=== PATIENT | male | born 1965 | race Caucasian/White ===

== ENCOUNTER 2023-01-31 16:40 | Emergency (ER) | payer SELFPAY ==
[2023-01-31] MEDS ORDERED: Lactated Ringers 1,000 ML IV STA (16:49)
[2023-01-31] MEDS ORDERED: Sodium Chloride 0.9% 1,000 ML IV ONE ×2 (16:49→18:35)
[2023-01-31 16:58] LABS: BASE EXCESS ARTERIAL -14.1 (-2.0-3.0); BICARBONATE,ARTERIAL 10 mEq/L (22-26); PCO2 ARTERIAL 20 mmHG (35-45); PO2 ARTERIAL 269 mmHG (80-105)
[2023-01-31] MEDS ORDERED: Calcium Chloride 10% 1 GM/10 ML Syringe ONE (17:02)
[2023-01-31] MEDS ORDERED: Sodium Bicarbonate 8.4% 50 MEQ/50 ML Syringe ONE (17:02)
[2023-01-31 17:03] LABS: BASOPHILS PERCENT AUTO 0.1 % (0.0-1.5); EOSINOPHILS PERCENT AUTO 0.1 % (0.0-7.0); HEMOGLOBIN 8.8 g/dL (13.0-17.0); LYMPHOCYTES ABSOLUTE AUTO 1.8 K/uL (0.6-2.4); LYMPHOCYTES PERCENT AUTO 6.3 % (16.0-40.0); MEAN CORPUSCULAR HEMOGLOBIN 31.7 pg (27.0-32.0); MEAN CORPUSCULAR HGB CONC 35.2 g/dL (31.0-37.0); MEAN CORPUSCULAR VOLUME 89.9 fL (80.0-98.0); MONOCYTES ABSOLUTE AUTO 0.5 K/uL (0.0-0.8); MONOCYTES PERCENT AUTO 1.9 % (0.0-15.0); NEUTROPHILS ABSOLUTE AUTO 25.7 K/uL (1.4-5.7); NEUTROPHILS PERCENT AUTO 91.6 % (48.0-80.0); NRBC ABSOLUTE 0 K/uL; NRBC PERCENT 0.1 /100WBC; PLATELET COUNT,PLT 597 K/uL (150-400); RED BLOOD CELL COUNT 2.78 M/uL (4.50-5.90); WHITE BLOOD CELL COUNT,WBC 28.08 K/uL (4.0-11.0)
[2023-01-31] MEDS ORDERED: Calcium Gluconate 10% 1 GM/10 ML SDV ONE (17:04)
[2023-01-31] MEDS ORDERED: Cefepime 2 GM in Sodium Chloride 0.9% 50 ML IV ONE (17:07)
[2023-01-31 18:12] LABS: A/G RATIO 0.4 (0.9-1.6); ACETAMINOPHEN <2.0 ug/mL; ALANINE AMINOTRANSFERASE,ALT 22 IU/L (14-63); ALBUMIN 2.2 g/dL (3.4-5.0); ALKALINE PHOSPHATASE 134 U/L (46-116); ASPARTATE AMNIOTRANSFERASE,AST 47 IU/L (15-37); BILIRUBIN TOTAL 0.4 mg/dL (0.2-1.0); BLOOD UREA NITROGEN,BUN 112 mg/dL (7.0-18.0); CALCIUM 9.1 mg/dL (8.5-10.1); CHLORIDE,CL 79 mmol/L (98-107); CREATINE KINASE,CK 704 U/L (26-308); CREATININE 6.8 mg/dL (0.8-1.3); EST CRCL DRUG DOSING (CG) 9.23 mL/min; GLUCOSE RANDOM 157 mg/dL (74-106); LIPASE 38 U/L (73-393); MAGNESIUM 1.8 mg/dL (1.8-2.4); PROTEIN TOTAL,TP 8.3 g/dL (6.4-8.2); SALICYLATE 3.6 mg/dL (0.0-20.0); SODIUM,NA 121 mmol/L (136-148); TSH ULTRASENSITIVE 2.26 uIU/mL (0.36-3.74)
[2023-01-31 18:14] LABS: ESTIMATED GFR 9 mL/min (>60); PHOSPHORUS 13.4 mg/dL (2.6-4.7)
[2023-01-31] MEDS ORDERED: Sodium Bicarbonate 100 MEQ in Dextrose 5% in Water 100 ML IV ONE ×4 (18:26→18:45)
[2023-01-31] MEDS ORDERED: Norepinephrine Bit/D5W Premix 250 ML IV SCH (18:30)
[2023-01-31 18:49] LABS: INR 1.2 (0.86-1.11)
[2023-01-31 18:51] LABS: LACTIC ACID 7.2 mmol/L (0.4-2.0)
[2023-01-31] MEDS ORDERED: Pantoprazole 80 MG in Sodium Chloride 0.9% 10 ML IVPUSH ONE (19:53)
[2023-01-31 19:56] LABS: PTT,PARTIAL THROMBOPLSTIN TIME 29.2 SEC (23.9-30.7)
== END 2023-02-01 00:29 ==
LOC: MW.ED 16:40
DX: A41.9 Sepsis, unspecified organism (principal); R65.21 Severe sepsis with septic shock; N17.9 Acute kidney failure, unspecified; E87.1 Hypo-osmolality and hyponatremia; D64.9 Anemia, unspecified; G93.40 Encephalopathy, unspecified
CPT/HCPCS: 36415; 36600; 51701; 70450; 71045; 71250; 74176; 80053; 80143; 80179; 82140; 82550; 82803; 83605; 83690; 83735; 84100; 84443; 84484; 85025; 85610; 85730; 87040; 87077; 87154; 87186; 93005; 96365; 96366; 96368; 96375; 99285; C9113; J0692; J3370; J3490; J7030; J7050; J7060; J7120; 93010; 99291; 99292